=== PATIENT | female | born 1975 | race Caucasian/White ===

== ENCOUNTER → 2019-07-29 15:47 | Outpatient (CLI) | payer OTHER, SELFPAY ==
--- NOTE | ~2019-07-29 | MM_ITS ---
EXAMINATION: MM screening blaze BI w brenda HISTORY: Screening mammogram TECHNIQUE: Craniocaudal and mediolateral oblique 3-D tomosynthesis images were obtained and synthetic 2-D images were generated. CAD analysis was submitted and interpreted. COMPARISON: bilateral digital screening mammogram BREAST PARENCHYMAL COMPOSITION: The breasts are heterogeneously dense, which may obscure small masses . FINDINGS: There is no evidence of suspicious mass, calcification, or architectural distortion to sugg est malignancy in either breast. There has been no suspicious interval change. IMPRESSION: 1. No mammographic evidence of malignancy. 2. Recommend routine screening mammography in one year. BI-RADS Category 1: Negative Reviewed, dictated and finalized at location A.
== END ==
PROVIDERS: Visit Provider Obstetrics & Gynecology
DX: Z12.31 Encounter for screening mammogram for malignant neoplasm of breast (principal)
CPT/HCPCS: 77063; 77067

== ENCOUNTER → 2021-02-12 14:06 | Outpatient (CLI) | payer OTHER, SELFPAY ==
--- NOTE | ~2021-02-12 | MM_ITS ---
EXAMINATION: MM screening blaze BI w brenda HISTORY: Screening TECHNIQUE: Craniocaudal and mediolateral oblique 3-D tomosynthesis images were obtained and synthetic 2-D images were generated. CAD analysis was submitted and interpreted. COMPARISON: Comparison to multiple prior studies sequentially, with oldest reviewed study dated 11/2017. BREAST PARENCHYMAL COMPOSITION: The breasts are heterogeneously dense, which may obscure small masses . FINDINGS: There is no evidence of suspicious mass, calcification, or architectural distortion to sugg est malignancy in either breast. There has been no suspicious interval change. IMPRESSION: 1. No mammographic evidence of malignancy. 2. Recommend routine screening mammography in one year. BI-RADS Category 1: Negative Reviewed, dictated and finalized at location A.
== END ==
PROVIDERS: Visit Provider Obstetrics & Gynecology
DX: Z12.31 Encounter for screening mammogram for malignant neoplasm of breast (principal)
CPT/HCPCS: 77063; 77067

== ENCOUNTER 2025-01-03 09:29 | Outpatient (CLI) | payer OTHER, SELFPAY ==
--- NOTE | ~2025-01-03 | DEXA_ITS ---
Corrected Report This report was recreated on 01/05/2025. Original report was signed by ABBEY on 01/03/2025 12:49:00 PM. . Addendum: Impression: The patient meets the criteria for osteoporosis based on the Total Spine T- Score. Discussion: INCREASED RISK OF FRACTURE. BONE DENSITY IS?? UNDESIRABLY LOW AT ONE OR MORE SKELETAL SITES, CONSISTENT WITH?? POSTMENOPAUSAL OSTEOPOROSIS.?? This patient's lowest T-score meets the World Health?? Organization's (WHO) criteria for osteoporosis at one or more?? sites (T-score -2.5 or below).? In untreated patients, the risk of osteoporotic fracture?? increases approximately two-fold for each 1.0 SD decrease in?? T-score.??Low bone density is not the only risk factor for?? fracture; also consider factors such as patient's age, frailty?? or poor health, risk of falling, risk of injury, previous?? osteoporotic fracture, family history of osteoporosis,?? cigarette smoking, low body weight, etc.? Not everyone with low bone mineral density has osteoporosis;?? osteomalacia and other metabolic bone disorders should also be?? considered. Patients who have osteoporosis should be evaluated?? for specific diseases and conditions (secondary causes) that?? may cause or contribute to bone loss.? The [place] [employer] (AACE)?? and National Osteoporosis Foundation (NOF) recommend?? pharmacologic intervention for all postmenopausal women whose?? T-score is in this range. The patient should follow a healthful?? lifestyle (good nutrition with adequate calcium and vitamin D,?? and appropriate weight-bearing exercise).?? Bone Density Report Name: SENTHIL DAVIS Age: 49 Sex: Female Ethnicity: White Date of : 1975 Indication: screening for osteoporosis; prior fracture; Referring Provider: ROSA SADLER Study: Bone densitometry was performed. Exam Date: January 03, 2025 Accession number: [id number] Bone Density: Region BMD T-score Z-score Classification AP Spine(L1-L4) 0.767 -2.5 -1.7 Osteoporosis Femoral Neck (Left) 0.668 -1.6 -0.8 Osteopenia Total Hip (Left) 0.738 -1.7 -1.1 Osteopenia Femoral Neck (Right) 0.654 -1.8 -0.9 Osteopenia Total Hip (Right) 0.695 -2.0 -1.5 Osteopenia Total Hip Mean 0.717 -1.9 -1.3 Osteopenia World Health Organization criteria for BMD impression classify patients as: Normal (T-score at or above -1.0), Osteopenia (T-score between -1.0 and -2.5), or Osteoporosis (T-score at or below -2.5). 10-year Fracture Risk(1): Major Osteoporotic Fracture 10% Hip Fracture 2.0% Reported Risk Factors: [place] (), Neck BMD=0.654, BMI=23.6, previous fracture, smoking (1) FRAX(R) Version 3.08. Fracture probability calculated for an untreated patient. Fracture probability may be lower if the patient has received treatment. Clinical Information Provided by Patient: Has had a low trauma fracture Smokes Has used the following medications: Vitamin D Patient maximum height was 66 No regular weight bearing exercise Onset of menses at age 11 Premenopausal Number of children 1 Impression: The patient's bone mass is within expected range for age, gender and ethnicity. The patient has an estimated ten-year risk of hip fracture of 2% and an estimated ten-year risk of major fracture of 10%, based on the WHO FRAX algorithm. The patient has risk factors, including: smoking, previous fracture. Discussion: BONE DENSITY IS WITHIN EXPECTED LIMITS FOR AGE, SEX AND RACE. Bone density is within expected limits for age, sex and race at all sites measured. The patient should follow a healthful lifestyle (good nutrition with adequate calcium and vitamin D, and appropriate weight-bearing exercise). Follow-Up: Consider a repeat BMD and Vertebral Fracture Assessment (VFA) exam in 2 years or sooner if medically necessary, to reassess this patient's status. Reported by: ABBEY on 01/03/2025 12:49:00 PM. Reviewed, dictated and finalized at location A.
== END 2025-01-03 09:30 | disposition home or self-care (01) ==
LOC: MICIMG 09:30
PROVIDERS: PCP Family Medicine; Visit Provider Family Medicine
DX: Z00.00 Encounter for general adult medical examination without abnormal findings (principal); Z13.820 Encounter for screening for osteoporosis; M85.89 Other specified disorders of bone density and structure, multiple sites; M81.0 Age-related osteoporosis without current pathological fracture; N95.1 Menopausal and female climacteric states; Z87.81 Personal history of (healed) traumatic fracture
CPT/HCPCS: 77080